=== PATIENT | male | born 1990 | race Caucasian/White ===

== ENCOUNTER 2019-03-02 16:39 | Outpatient (CLI) | payer SELFPAY ==
[2019-03-05 11:23] LABS: Hepatitis C Ab w Rflx HCV PCR Negative (NEGAT)
[2019-03-05 13:13] LABS: Syphilis Serology (RPR) Negative (Negative)
== END 2019-03-02 16:59 ==
PROVIDERS: Visit Provider Nurse Practitioner Women's Health
DX: Z11.3 Encounter for screening for infections with a predominantly sexual mode of transmission (principal)
CPT/HCPCS: 36415; 86803; 86592